=== PATIENT | male | born 1970 | race Two or more races ===

== ENCOUNTER 2020-11-03 13:41 | Inpatient (IN) | payer OTHER ==
[~2020-11-03] VITALS: Ht 190.5 cm; Wt 101.2 kg
[2020-11-03] MEDS ORDERED: HUMALOG100 UNIT/2 (14:02)
[2020-11-03] MEDS ORDERED: LANTUS SOL100 UNIT/1 (14:02)
--- NOTE | 2020-11-03 14:02 | NUR ---
PACIENTE ALERTA Y ORIENTADO EN LAS QUINTIN ESFERAS. PACIENTE PRESENTA DISTENCION ABDOMINAL. SE PALPA ABDOMEN Y EL MISMO SE ENCUENTRA RIGIDOS Y CON RESISTENCIA A DEPRESION. SE OBSERVA ABULTAMIENTO EN EL AREA UMBILICAL. SE UBICA A PACIENTE EN AREA DE OBSERVACION PARA ATENCION MEDICA.
--- NOTE | 2020-11-03 16:02 | NUR ---
PACIENTE EVALUADO POR DRA. ROJAS. MRS. HADDAD COLECTA MUESTRAS DE LABORATORIO Y CANALIZA VENA SIGUIENDO TECNICAS ASEPTICAS. SE ORIENTA A PACIENTE SOBRE PROCEDIMIENTO E INDICACION DE LOS MEDICAMENTOS. PACIENTE REFIERE ENTENDER. SE ESPERA POR RESULTADOS Y POR REALIZACION DE CT ABDOMINAL.
[2020-11-06] MEDS ORDERED: SPIRONOLACTONE50 MG PO (09:55)
[2020-11-06] MEDS ORDERED: PROPRANOLOL HCL20 MG PO (09:56)
== END 2020-11-06 10:05 | disposition home or self-care (01) | DRG 441 ==
LOC: ER 13:41 → MEDJ 20:29
PROVIDERS: ADMIT Internal Medicine; ATTEND Internal Medicine
PROC: 4A033R1 Measurement of Arterial Saturation, Peripheral, Percutaneous Approach (ICD-10-PCS; 2020-11-03)
PROC: BW2110Z Computerized Tomography (CT Scan) of Abdomen and Pelvis using Low Osmolar Contrast, Unenhanced and Enhanced (ICD-10-PCS; 2020-11-04)
PROC: 0W9G3ZX Drainage of Peritoneal Cavity, Percutaneous Approach, Diagnostic (ICD-10-PCS; principal; 2020-11-05)
DX: K76.6 Portal hypertension (principal); K65.2 Spontaneous bacterial peritonitis; R18.8 Other ascites; K72.90 Hepatic failure, unspecified without coma; K76.9 Liver disease, unspecified; K63.89 Other specified diseases of intestine; E11.9 Type 2 diabetes mellitus without complications; Z20.822 Contact with and (suspected) exposure to COVID-19; Z89.612 Acquired absence of left leg above knee

== ENCOUNTER 2020-11-18 17:33 | Inpatient (IN) | payer OTHER ==
[~2020-11-18] VITALS: Ht 190.5 cm; Wt 101.2 kg
[~2020-11-18 17:33] MED LIST: HUMALOG100 UNIT/2; LANTUS SOL100 UNIT/1; PROPRANOLOL HCL20 MG PO; SPIRONOLACTONE50 MG PO
== END 2020-11-20 14:20 | disposition left against medical advice (07) | DRG 393 ==
LOC: ER 17:33 → ICU-2 23:44
PROVIDERS: ADMIT Internal Medicine; ATTEND Internal Medicine
PROC: 3E0F7SF Introduction of Other Gas into Respiratory Tract, Via Natural or Artificial Opening (ICD-10-PCS; principal; 2020-11-18)
DX: K45.8 Other specified abdominal hernia without obstruction or gangrene (principal); K65.2 Spontaneous bacterial peritonitis; R18.8 Other ascites; K76.89 Other specified diseases of liver; K72.90 Hepatic failure, unspecified without coma; E11.9 Type 2 diabetes mellitus without complications; Z20.822 Contact with and (suspected) exposure to COVID-19; I10 Essential (primary) hypertension